=== PATIENT | female | born 1965 | race Caucasian/White ===

== ENCOUNTER 2017-02-27 21:25 | Emergency (ER) | payer OTHER ==
[2017-02-27 22:31] LABS: BASOPHIL 0.4 % (0-2); HCT 38.4 % (37.0-47.0); HGB 13.3 g/dl (12.5-16.0); LYMPHOCYTE 28.8 % (15-48); MCH 30.8 pg (25.0-31.0); MCHC 34.6 g/dL (32.0-36.0); MCV 88.9 fL (78.0-100.0); MONOCYTE 10.5 % (0-12); MPV 10.8 fL (6.0-9.5); NEUTROPHIL 57.3 % (41-80); PLT 166 K/uL (150-400); RBC 4.32 M/uL (4.20-5.40); RDW 12.4 % (11.5-14.0)
[2017-02-27 22:51] LABS: CREATININE 0.7 mg/dL (0.5-1.0); POTASSIUM 4.1 mmol/L (3.5-5.1)
== END 2017-02-28 00:50 | disposition home or self-care (01) ==
LOC: FER 21:25
PROVIDERS: Emergency Medicine Emergency Medical Services
DX: I82.412 Acute embolism and thrombosis of left femoral vein (principal); I82.432 Acute embolism and thrombosis of left popliteal vein; E11.9 Type 2 diabetes mellitus without complications; E78.5 Hyperlipidemia, unspecified; Z88.5 Allergy status to narcotic agent; Z88.6 Allergy status to analgesic agent; Z79.84 Long term (current) use of oral hypoglycemic drugs; Z79.4 Long term (current) use of insulin; Z79.899 Other long term (current) drug therapy
CPT/HCPCS: 36415; 80048; 85025; 93971